=== PATIENT | female | born 1945 | race Caucasian/White ===

== ENCOUNTER 2016-11-23 12:29 | Inpatient (IN) | payer MEDICARE ==
[~2016-11-23] VITALS: Ht 160 cm; Wt 122.0 kg
--- NOTE | 2016-11-23 13:25 | NUR ---
DIRECT ADMIT VIA WHEELCHAIR ACCOMPANIED BY DAUGHTER. AMBULATED TO BED WITH PAINFUL GAIT. BILAT UPPER THIGHS RED, WARM, WITH YELLOW SEROUS DRAINAGE. C/O PAIN WITH MOVEMENT. ORIENTED TO ROOM AND CALL SYSTEM. SAFETY PRECAUTIONS REINFORCED. BED IN LOWEST POSITION WITH WHEELS LOCKED. CALL LIGHT WITHIN REACH. ENCOURAGED PT TO CALL FOR ANY NEEDS.
[2016-11-23 13:37] VITALS: BP 132/66
[2016-11-23 14:01] LABS: HEMATOCRIT 43.5 % (37.0-47.0); HEMOGLOBIN 13.6 g/dl (12.0-16.0); MEAN CELL VOLUME 93.1 fL CALC (80.0-100.0); MEAN CORPUSCULAR HGB 29.1 pG CALC (26.0-32.0); MEAN CORPUSCULAR HGB CONC 31.3 g/L CALC (32.0-36.0); NEUT# 9.7 thou/uL (2.00-7.15); RED BLOOD COUNT 4.67 mill/uL (4.20-5.60); RED CELL DISTRI WIDTH 14.2 % (11.5-15.5)
[2016-11-23 14:24] LABS: ALBUMIN 3.7 g/dL (3.2-5.0); ALKALINE PHOSPHATASE 96 u/l (38-126); ANION GAP 18 (6-22 (CALC)); BILIRUBIN, TOTAL 0.3 mg/dL (0.0-1.4); BUN 10 mg/dL (8-23); BUN/CREATININE RATIO 12 (12-20 (CALC)); CALCIUM 9.5 mg/dL (8.4-10.2); CARBON DIOXIDE 28 mmol/l (22-30); CHLORIDE 101 mmol/l (95-108); CREATININE 0.8 mg/dL (0.5-1.0); GFR > 60 ML/MIN (>=60 (CALC)); GFR FOR AFR.AMER. > 60 ML/MIN (>=60 (CALC)); GLUCOSE 93 mg/dL (82-115); POTASSIUM 3.8 mmol/l (3.5-5.1); SGOT/AST 19 u/l (9-36); SGPT/ALT 30 u/l (11-66); SODIUM 143 mmol/l (137-146)
[2016-11-23] MEDS ORDERED: LEVEMIR100 UNIT/M SC (14:55)
[2016-11-23] MEDS ORDERED: VICTOZA18 MG/3 ML SC (14:57)
[2016-11-23] MEDS ORDERED: ISOSORB MONO30 MG PO (14:59)
[2016-11-23] MEDS ORDERED: OMEPRAZOLE10 MG PO (15:03)
[2016-11-23] MEDS ORDERED: JANUVIA50 MG PO (15:08)
[2016-11-23] MEDS ORDERED: JARDIANCE25 MG PO (15:09)
[2016-11-23 15:26] VITALS: BP 125/54
--- NOTE | 2016-11-23 16:01 | NUR ---
S: SHAUNA HARRIS is a 70 F who presents with bilateral thigh cellulitis. O: VS: BP 125/54, P 84, RR 20, T 98.6 W 122 kg, HT 63 in, Scr=0.8, CrCl=55.4 ml/min A: Blood culture is pending. P: Patient is on Meropenem 1 gram IV Q8H. Vancomycin ordered for pharmacy to dose. Start Vancomycin 1 gram IV Q12H. Vancomycin trough is drawn before the 4th dose on 11/25/16@0330. Vancomycin goal trough is between 10-20 mcg/ml. Pharmacy will follow and or advise on antibiotics use as needed.
--- NOTE | 2016-11-23 16:10 | NUR ---
BILAT UPPER THIGHS CLEANSED WITH SOAP AND WATER, PATTED DRY. AREA RED, WARM TO TOUCH. WOUND CULTURE OBTAINED. MEDICATED WITH TORADOL 30MG IVP FOR C/O 7/10 BILAT UPPER THIGH PAIN. CALL LIGHT WITHIN REACH. ENCOURAGED PT TO CALL FOR ANY NEEDS.
[2016-11-23] MEDS ORDERED: VENLAFAXINE HCL75 M1 PO (16:20)
[2016-11-23] MEDS ORDERED: METO25TAB PO (16:39)
[2016-11-23] MEDS ORDERED: AMLODIPINE5 MG PO (16:39)
[2016-11-23] MEDS ORDERED: COZAAR50 MG PO (16:40)
[2016-11-23] MEDS ORDERED: HYDROCHLOROT12.5 M1 PO (16:41)
[2016-11-23] MEDS ORDERED: ASPIRINCHW 81MG PO (16:42)
[2016-11-23] MEDS ORDERED: ATORVASTATIN CA20 MG PO (16:42)
[2016-11-23 19:00] VITALS: BP 123/57
--- NOTE | 2016-11-23 19:39 | NUR ---
PATIENT SITTING UP OIN BED AT THIS TIME WITH NO COMPLAINTS. AWAKE ALERT AND ORIENTEDX3. CALL LIGHT IN REACH. WILL CONT TO MONITOR.
--- NOTE | 2016-11-23 21:00 | NUR ---
PATIENT RESTING IN BED AT THIS TIME-AWAKE ALERT AND DAUGHTER VISITING AT BEDSIDE. PATIENT WITH CELLULITIS TO BOITH INNER THIGHS-SWOLLEN, RED, HARD TO TOUCH AND PAINFUL. PATIENT UP TO BSC TO VOID CLEAR YELLOW URINE. CALL LIGHT IN REACH. WILL CONT TO MONITOR.
--- NOTE | 2016-11-23 23:23 | NUR ---
PATIENT RESTING IN BED WITH C-PAP IN PLACE. PATIENT C/O CECILIA INNER THIGH PAIN 7/10 ON PAIN SCALE. PATIENT MEDICATED WITH ULTRAM 50MG PO AND FOR SLEEP WITH SONATA 5MG PO. CALL LIGHT IN REACH. WILL CONT TO MONITOR.
[2016-11-24 04:00] VITALS: BP 114/57
--- NOTE | 2016-11-24 04:21 | NUR ---
PATIENT AWAKE RESTING IN BED. PATIENT HAS BEEN UP TO THE BSC TO VOID CLEAR YELLOW URINE. IV VANCO HUNG ORDERED VIA RIGHT AC IV SITE-SITE IS HEALTHY WITH GOOD BLOOD RETURN. PATIENT WITH NO COMPLAINTS AT THIS TIME. CALL LIGHT IN REACH. WILL CONT TO MONITOR.
[2016-11-24 06:02] LABS: HEMATOCRIT 36.2 % (37.0-47.0); HEMOGLOBIN 11.4 g/dl (12.0-16.0); MEAN CELL VOLUME 93.8 fL CALC (80.0-100.0); MEAN CORPUSCULAR HGB 29.5 pG CALC (26.0-32.0); MEAN CORPUSCULAR HGB CONC 31.5 g/L CALC (32.0-36.0); RED BLOOD COUNT 3.86 mill/uL (4.20-5.60); RED CELL DISTRI WIDTH 14.4 % (11.5-15.5)
--- NOTE | 2016-11-24 06:18 | NUR ---
IV ANTIBIOTICS INFUSING ORDERED. PATIENT WITH C-PAP IN PLACE. CALL LIGHT IN REACH. WILL CONT TO MONITOR.
[2016-11-24 06:22] LABS: ANION GAP 13 (6-22 (CALC)); BUN 9 mg/dL (8-23); BUN/CREATININE RATIO 11 (12-20 (CALC)); CALCIUM 8.7 mg/dL (8.4-10.2); CARBON DIOXIDE 25 mmol/l (22-30); CHLORIDE 106 mmol/l (95-108); CREATININE 0.8 mg/dL (0.5-1.0); GFR > 60 ML/MIN (>=60 (CALC)); GFR FOR AFR.AMER. > 60 ML/MIN (>=60 (CALC)); GLUCOSE 145 mg/dL (82-115); POTASSIUM 4.4 mmol/l (3.5-5.1); SODIUM 139 mmol/l (137-146)
--- NOTE | 2016-11-24 07:00 | NUR ---
REPORT RECIEVED FROM CHRISTY GALLEGO; PT RESTING IN BED; IV ANTIBIOTICS COMPLETED AND IV SITE FLUSHED AT THIS TIME; PT REQUESTING PAIN MEDICATION AT THIS TIME FOR PAIN IN UPPER THIGHS; CALL LIGHT WITHIN REACH; WILL CONTINUE TO MONITOR
[2016-11-24 07:54] VITALS: BP 123/62
--- NOTE | 2016-11-24 12:00 | NUR ---
PT RESTING IN BED WITH CPAP ON; NO S/S OF DISTRESS NOTED; PT DENIES ANY NEEDS AT THIS TIME; PT ENCOURAGED TO CALL FOR ANY ASSISTANCE NEEDED; CALL LIGHT WITHIN REACH; WILL CONTINUE TO MONITOR
--- NOTE | 2016-11-24 14:30 | NUR ---
PT C/O PAIN RATING 8 OUT OF 10 IN THIGHS; PT MEDICATED WITH TRAMADOL PER PRN ORDERS; PT DENIES ANY OTHER NEEDS AT THIS TIME;CALL LIGHT AMOS REACH; WILL CONTINUE TO MONITOR
[2016-11-24 16:00] VITALS: BP 135/63
--- NOTE | 2016-11-24 16:00 | NUR ---
PT RESTING IN BED; NO S/S OF DISTRESS NOTED; PT DENIES ANY NEEDS AT THIS TIME; CALL LIGHT WITHIN REACH; WILL CONTINUE TO MONITOR
--- NOTE | 2016-11-24 19:53 | NUR ---
REPORT RECEIVED FROM BIBI AND PT.MEDICATED FOR PAIN W/ULTRAM 7/10 ON PAIN SCALE; PT.PROVIDED HOT CUP OF WATER REQUESTED FOR TEA; IN TO SEE PT.SCHEDULED SURGERY ON LEG IN MORNING, PT.TO BE PLACED NPO AFTER MIDNIGHT/.;
[2016-11-24 20:40] VITALS: BP 138/75
[2016-11-25] VITALS (9 sets, daily range): BP systolic 110–159; BP diastolic 40–65
--- NOTE | 2016-11-25 00:15 | NUR ---
PT.V/S ASSESSED T.100.9; PT.UP TO BSC AND PADS ON BED CHANGED; SANGUINEOUS DRAINAGE FROM UPPER INNER THIGH WOUND; WILL CONTINUE TO MONITOR; PT.REQUESTING PAIN MEDICATION, MEDICATED ORDERS PROVIDE; CALL LIGHT W/IN REACH AND PT.INSTRUCTED TO CALL FOR ASSISTANCE; PT.LEFT IN BED W/LIGHTS OUT AND CPAP IN PLACE
[2016-11-25 04:39] LABS: HEMATOCRIT 38.4 % (37.0-47.0); HEMOGLOBIN 12.2 g/dl (12.0-16.0); IMMATURE GRANULOCYTES 1.9 % (0.0-1.0); MEAN CELL VOLUME 93.4 fL CALC (80.0-100.0); MEAN CORPUSCULAR HGB 29.7 pG CALC (26.0-32.0); MEAN CORPUSCULAR HGB CONC 31.8 g/L CALC (32.0-36.0); NEUT# 8.16 thou/uL (2.00-7.15); RED BLOOD COUNT 4.11 mill/uL (4.20-5.60); RED CELL DISTRI WIDTH 14.6 % (11.5-15.5)
[2016-11-25 04:45] LABS: ANION GAP 12 (6-22 (CALC)); BUN 12 mg/dL (8-23); BUN/CREATININE RATIO 17 (12-20 (CALC)); CALCIUM 8.9 mg/dL (8.4-10.2); CARBON DIOXIDE 27 mmol/l (22-30); CHLORIDE 102 mmol/l (95-108); CREATININE 0.8 mg/dL (0.5-1.0); GFR > 60 ML/MIN (>=60 (CALC)); GFR FOR AFR.AMER. > 60 ML/MIN (>=60 (CALC)); GLUCOSE 162 mg/dL (82-115); POTASSIUM 4.1 mmol/l (3.5-5.1); SODIUM 137 mmol/l (137-146)
--- NOTE | 2016-11-25 06:40 | NUR ---
PTPRISCA COMPLETED AND PREPPED TO HANG MERREM, IV SITE LEAKING; WILL REPLACE IV SITE; PT.PADS REPLACED W/MODERATE AMOUNT OF DRAINAGE FROM UPPER THIGH WOUND; SITE RED,SWOLLEN AND INFLAMED; PT.ASSISTED BACK TO BED AND CALL LIGHT W/IN REACH
--- NOTE | 2016-11-25 08:00 | NUR ---
CHRISTY HERNANDEZ FORM ER UNSUCCESSFUL ATTEMPT AT IV ACCESS; EXTENSION COURSE COUNSELOR NOTIFIED
--- NOTE | 2016-11-25 08:02 | NUR ---
Vancomycin dose Current dose being given: 1000 mg Current dosing interval: 12 hrs Current infusion time (hrs): 2 Estimated PK Parameters: New rate constant (jeny): 0.085 hr-1 New half-life: 8.15 Hours New Vd from levels: 85.40 Liters (0.7 L/kg) Give Vancomycin 1500 mg q 12 hrs. Infuse over 2 hrs Expected Cpeak: 25.3 mcg/ml Expected Ctrough: 10.8 mcg/ml Vancomycin trough on 11/28/16 at 0330, 30 minutes prior to dose.
--- NOTE | 2016-11-25 08:41 | NUR ---
ASSESSMENT COMPLETED; PT DOES NOT VOICE ANY COMPLAINTS OF PAIN AT THIS TIME; RT INNER THIGH ABCESS WITH MODERATE AMOUNT OF SEROUSAGINOUS DRAINAGE NOTED; INSTRUCTED PT ON NPO STATUS; PT VERBALIZE UNDERSTANDING; CALL PONCE WITHIN REACH; WILL CONTINUE TO MONITOR.
--- NOTE | 2016-11-25 10:15 | NUR ---
#22 GAUGE STARTED IN RFA BY Aide LONGO RN; FIRST ATTEMPT SUCCESSFUL; PT TOLERATED WELL; CALL PONCE WITHIN REACH; WILL CONTINUE TO MONITOR.
--- NOTE | 2016-11-25 10:55 | NUR ---
PT TO OR VIA STRETCHER ACCOMPANIED BY STAFF
--- NOTE | 2016-11-25 11:30 | NUR ---
PT RETURN FROM OR VIA STRETCHER ACCOMPANIED BY STAFF; AMBULATORY TO BED WITH STAND BY ASSIST; A/O X3; DENIES PAIN; CALL PONCE WITHIN REACH; WILL CONTINUE TO MONITOR
--- NOTE | 2016-11-25 13:35 | NUR ---
PT TO RADIOLOGY VIA WC ACCOMPANIED BY STAFF;
--- NOTE | 2016-11-25 14:10 | NUR ---
PT RETURN FROM RADIOLOGY VIA WC ACCOMPANIED BY STAFF; AMBULATORY TO BED; JAMES DOUBLE LUMEN PICC LINE IN PLACE, FLUSHES WELL; CALL PONCE WITHIN REACH; WILL CONTINUE TO MONITOR.
--- NOTE | 2016-11-25 17:03 | NUR ---
PT WATCHING TV; NO COMPLAINTS VOICED; IVF INFUSING WITHOUT DIFFICULTY
--- NOTE | 2016-11-25 19:50 | NUR ---
BEDSIDE REPORT RECEIVED FROM CHRISTY SILVERIO. PT SUPINE IN BED WITH DAUGHTER AT BEDSIDE. DENIES PAIN AT THIS TIME. C/O SHORTNESS OF BREATH WITH EXERTION. ASSESSMENT COMPLETE. IV FLUIDS INFUSING INTO PICC LINE APPROPRIATELY. CONTINUES ON CONTACT PRECAUTIONS FOR HISTORY OF MRSA. CHRISTY SCHULER FROM OR UP TO TRANSPORT PT TO OR FOR SURGICAL PROCEDURE. PLAN OF CARE DISCUSSED WITH PT AND ALL QUESTIONS ANSWERED TO SATISFACTION. PT OFF UNIT AT 1945.
[2016-11-26] VITALS (7 sets, daily range): BP systolic 104–129; BP diastolic 43–59
--- NOTE | 2016-11-26 | NUR ---
PT RESTING SUPINE IN BED WITH EYES CLOSED. STATES THAT ANALGESIC AND REPORSITIONING INTO A FLAT POSITION IS EFFECTIVE WITH PAIN TO SURGICAL SITES. RESPIRATIONS ARE EVEN AND UNLABORED WITH CPAP IN PLACE. PT HAS NO REQUESTS AT THIS TIME. SAFETY MEASURES IN PLACE. CALL LIGHT WITHIN REACH.
--- NOTE | 2016-11-26 04:24 | NUR ---
PT UP TO BSC AND PAIN MEDICATION GIVEN AT THIS TIME. BLEEDING NOTED THROUGH SIMEON WRAP. ADDITIONAL SIMEON WRAP APPLIED TAUNTLY INSTRUCTED BY DR. SANTO. RIGHT ARM CIRCUMFERENCE MEASURES 34.5CM THIS SHIFT WITH PICC LINE IN PLACE. SAFETY MEASURES IN PLACE. CALL LIGHT WITHIN REACH.
[2016-11-26 06:21] LABS: HEMATOCRIT 32.6 % (37.0-47.0); HEMOGLOBIN 10.3 g/dl (12.0-16.0); IMMATURE GRANULOCYTES 3.2 % (0.0-1.0); MEAN CELL VOLUME 94.2 fL CALC (80.0-100.0); MEAN CORPUSCULAR HGB 29.8 pG CALC (26.0-32.0); MEAN CORPUSCULAR HGB CONC 31.6 g/L CALC (32.0-36.0); NEUT# 6.01 thou/uL (2.00-7.15); RED BLOOD COUNT 3.46 mill/uL (4.20-5.60); RED CELL DISTRI WIDTH 14.4 % (11.5-15.5)
[2016-11-26 06:35] LABS: ANION GAP 10 (6-22 (CALC)); BUN 12 mg/dL (8-23); BUN/CREATININE RATIO 20 (12-20 (CALC)); CALCIUM 8.3 mg/dL (8.4-10.2); CARBON DIOXIDE 26 mmol/l (22-30); CHLORIDE 105 mmol/l (95-108); CREATININE 0.6 mg/dL (0.5-1.0); GFR > 60 ML/MIN (>=60 (CALC)); GFR FOR AFR.AMER. > 60 ML/MIN (>=60 (CALC)); GLUCOSE 132 mg/dL (82-115); POTASSIUM 4.3 mmol/l (3.5-5.1); SODIUM 138 mmol/l (137-146)
--- NOTE | 2016-11-26 08:00 | NUR ---
PT A/O X3; MEDICATED FOR C/O PAIN 01/15; MODERATE AMOUNT OF BLOODY DRAINAGE NOTED TO BILAT DRSGS; DRSG TO BILAT THIGHS REINFORCED; JAMES PICC LINE FLUSHED PER PROTOCOL; CALL PONCE WITHIN REACH; WILL CONTINUE TO MONITOR.
--- NOTE | 2016-11-26 11:27 | NUR ---
DR. AYON IN TO SEE PT; PLAN OF CARE DISCUSSED
--- NOTE | 2016-11-26 14:07 | NUR ---
PT IN SUPINE POSITION; NO COMPLAINTS VOICED; DRSG CDI; PT VOIDS WELL; CALL PONCE WITHIN REACH; WILL CONTINUE TO MONITOR
--- NOTE | 2016-11-26 16:56 | NUR ---
DRSG TO BILAT INNER THIGHS REINFORCE; PT MEDICATED FOR C/O INCISION PAIN 03/17; CALL PONCE WITHIN REACH; WILL CONTINUE TO MONITOR.
--- NOTE | 2016-11-26 18:50 | NUR ---
SHIFT REPORT RECEIVED FROM CHRISTY BALES. PATIENT IS IN STABLE CONDTION AND LAYING IN BED. PATIENT APPEARS TO BE IN NO APPARENT DISTRESS OR DISCOMFORT.
--- NOTE | 2016-11-26 19:00 | NUR ---
DR FLORENTINO IS IN WITH PATIENT AT THIS TIME. DR FLORENTINO REMOVED DRSG AND PACKING FROM WOUND. RECEIVED VERBAL ORDER TO CHANGE DRSG BID AND PACK WOUND WITH NS SOAKED KIRLEX, COVERED WITH 4X4 GAUZE AND SECURED WITH KIRLEX.
--- NOTE | 2016-11-26 20:00 | NUR ---
BILATERAL INNER THIGH INCISIONS PACKED WITH NORMAL SALINE SOAKED KIRLEX, COVERED WITH 4X4 GAUZE AND SECURE WITH KIRLEX. STERILE TECHNIQUE USED TO PERFORM DRSG CHANGE. PATIENT TOLERATED WELL.
--- NOTE | 2016-11-27 | NUR ---
PATIENT IS RESTING WITH EYES CLOSED NAD BIPAP IN PLACE. PATIENT APPEARS TO BE IN NO APPARENT DISTRESS OF DISCOMFORT. WILL CONTINUE TO MONITOR.
[2016-11-27 03:25] LABS: HEMATOCRIT 32.6 % (37.0-47.0); HEMOGLOBIN 10.3 g/dl (12.0-16.0); IMMATURE GRANULOCYTES 3.6 % (0.0-1.0); MEAN CELL VOLUME 93.4 fL CALC (80.0-100.0); MEAN CORPUSCULAR HGB 29.5 pG CALC (26.0-32.0); MEAN CORPUSCULAR HGB CONC 31.6 g/L CALC (32.0-36.0); NEUT# 4.52 thou/uL (2.00-7.15); RED BLOOD COUNT 3.49 mill/uL (4.20-5.60); RED CELL DISTRI WIDTH 14.3 % (11.5-15.5)
[2016-11-27 03:37] LABS: ANION GAP 10 (6-22 (CALC)); BUN 9 mg/dL (8-23); BUN/CREATININE RATIO 15 (12-20 (CALC)); CALCIUM 8.4 mg/dL (8.4-10.2); CARBON DIOXIDE 28 mmol/l (22-30); CHLORIDE 106 mmol/l (95-108); CREATININE 0.6 mg/dL (0.5-1.0); GFR > 60 ML/MIN (>=60 (CALC)); GFR FOR AFR.AMER. > 60 ML/MIN (>=60 (CALC)); GLUCOSE 190 mg/dL (82-115); POTASSIUM 4.2 mmol/l (3.5-5.1); SODIUM 140 mmol/l (137-146)
[2016-11-27 04:40] VITALS: BP 111/52
--- NOTE | 2016-11-27 07:35 | NUR ---
PT ASSISTED TO CHAIR AND ASSISTED WITH BREAKFAST SET UP; NO COMPLAINTS VOICED; DSRG CDI; CALL PONCE WITHIN REACH; WILL CONTINUE TO MONITOR.
[2016-11-27 09:33] VITALS: BP 130/78
--- NOTE | 2016-11-27 10:25 | NUR ---
Weight: 122 Kilograms Vancomycin single level analysis: Current dose being given: 1500 mg Current dosing interval: 12 hrs Current infusion time (hrs): 2 Single level Trough Data: Trough level obtained: 9 mcg/ml Desired peak: 30 mcg/ml Desired trough: 12 mcg/ml Relevant medical/social history: SSTI Cultures and sensitivities: MSRA Assessment: Renal function is stable SCR=0.6 Recommendations: Give Vancomycin 1250 mg q 8 hrs. Infuse over 2 hrs Recommended labs and intervals: NEXT TROUGH WILL BE BEFORE 1200 DOSE ON 11/28/2016 Thank you for the consult, will continue to follow. Signature: MAKENZIE ALONSO PHARMD
--- NOTE | 2016-11-27 10:30 | NUR ---
DRSG TO RIGHT INNER THIGH REMOVED; MODERATE AMOUNT OF BLOODY DRAINAGE NOTED; AREA CLEANED WITH NS; PACKED WITH GAUZE; SECURED WITH KERLIX AND COBAN; DRSG TO LEFT INNER THIGH REMOVED; MODERATE AMOUNT OF BLOODY DRAINAGE NOTED; AREA CLEANED WITH NS; PACKED WITH GAUZE AND SECURED WITH KERLIX AND COBAN; PT TOLERATED WELL; CALL PONCE WITHIN REACH; WILL CONTINUE TO MONITOR.
--- NOTE | 2016-11-27 11:30 | NUR ---
PT IN CHAIR FOR LUNCH; NO COMPLAINTS VOICED AT THIS TIME;
--- NOTE | 2016-11-27 12:46 | NUR ---
DR. AYON IN TO SEE PT; PLAN OF CARE DISCUSSED
--- NOTE | 2016-11-27 16:00 | NUR ---
RECEIVED PT FROM JEAN CLAUDE, PT SITTING UP IN RECLINER PLAYING GAMES, NO C/O DISCOMFORT, WOUND DRESSINGS INTACT TO LOWER EXT, ALL NEEDS MET/ADDRESSED, CALL PONCE IN REACH.
[2016-11-27 16:42] VITALS: BP 114/55
--- NOTE | 2016-11-27 19:00 | NUR ---
RECEIVED REPORT FROM CHRISTY NERI. PATIENT RESTING IN BED AT THIS TIME ANDAPPEARS TO BE IN NO APPARENT DISTRESS OR DISCOMFORT. PATIENT DENIES PAIN. NO VOICED COMPLAINTS. WILL CONTINUE TO MONITOR.
[2016-11-27 19:46] VITALS: BP 114/50
--- NOTE | 2016-11-28 | NUR ---
PATIENT RESTING QUIETLY WITH EYES CLOSED AND APPEARS TO BE IN NO APPARENT DISTRESS OR DISCOMFORT. WILL CONTINUE TO MONITOR.
--- NOTE | 2016-11-28 04:00 | NUR ---
PATIENT RESTING WELL. NO VOICED COMPLAINTS AT THIS TIME.
[2016-11-28 04:20] VITALS: BP 115/54
--- NOTE | 2016-11-28 07:00 | NUR ---
SHIFT CHANGE REPORT FROM SREEDHAR, ANILA AWAKE ALERT AND ORIENTED RESTING IN BED, DRESSINGS TO CECILIA THIGHS NOTED DISPLACED WITH BLOODY DRAINAGE, NO C/O PAIN AT THIS TIME, WILL CONTINUE TO MONITOR AND ADDRESS NEEDS.
[2016-11-28 08:23] VITALS: BP 120/58
--- NOTE | 2016-11-28 10:17 | NUR ---
DAUGHTER IN ROOM AT THIS TIME, EDUCATED ON DRESSING CHANGES BY NIGHT RN. I OBSERVED DAUGHTER PERFORMING DRESSING CHANGES AND ADVISED HER TO USE STERILE TECHNIQUE WHEN REPLACING NEW DRESSINGS; THIS WAS DONE WITH SOME COACHING AND APPLICABLE INSTRUCTIONS. SOILED DRESSINGS REMOVED, WOUNDS PACKED WITH W-D ANIKET, ABD APPLIED AND SECURED WITH COBAN.
--- NOTE | 2016-11-28 12:36 | NUR ---
VANCO TROUGH=13 CURRENT DOSE=VANCOMYCIN 1250MG IV Q8H WILL CONTINUE VANCOMYCIN 1250MG IV Q8H NEXT TROUGH WILL BE DUE 11/29/2016 BEFORE 2000 DOSE MAKENZIE ALONSO-REBECAD
[2016-11-28 14:50] VITALS: BP 106/51
--- NOTE | 2016-11-28 19:00 | NUR ---
RECEIVED SHIFT REPORT FROM CHRISTY NERI. PATIENT SITTING UP IN CHAIR AND APPEARS TO BE IN NO APPARENT DISTRESS OR DISOMFORT. WILL CONTINUE TO MONITOR.
--- NOTE | 2016-11-28 19:00 | NUR ---
RECEIVED SHIFT REPORT FROM CHRISTY NERI. PATIENT LAYING IN BED IN STABLE CONDITION AND APPEARS TO BE IN NO APPARENT DISTRESS OR DISCOMFORT. BEE CONTINUE TO MONITOR.
[2016-11-28 19:30] VITALS: BP 128/58
--- NOTE | 2016-11-28 21:00 | NUR ---
PATIENT REFUSED TO HAVE DRESSINGS CHANGED. PATIENT STATES THE PHYSICIAN TELLS HER THAT THE ORDER WILL BE CHANGED TO ONCE A DAY.
--- NOTE | 2016-11-29 | NUR ---
PATIENT RESTING WITH EYES CLOSED AND APPEARS TO BE IN NO APPARENT DISTRESS OR DISCOMFORT. WILL CONTINUE TO MONITOR.
--- NOTE | 2016-11-29 04:00 | NUR ---
PATIENT SLEPT WEL DURING THE NIGHT. NO ACUTE CHANGES NOTED.
[2016-11-29 04:25] VITALS: BP 111/59
--- NOTE | 2016-11-29 07:00 | NUR ---
REPORT RECIEVED FROM CHRISTY ELI; PT RESTING IN BED WITH EYES CLOSED CPAP IN PLACE; FALL PRECAUTIONS IN PLACE; CALL LIGHT WITHIN REACH; WILL CONTINUE TO MONITOR
[2016-11-29 07:38] VITALS: BP 122/50
[2016-11-29] MEDS ORDERED: DAPTOMYCIN500 MG IV (12:14)
[2016-11-29] MEDS ORDERED: LORTAB 7.5-3251 TAB PO (12:14)
--- NOTE | 2016-11-29 12:21 | NUR ---
PT SITTING UP IN BED; NO S/S OF DISTRESS NOTED; DRESSINGS TO BILATERAL THIGHS CDI; IV VANCO INFUSING TO PICC TO JAMES; PT ENCOURAGED TO CALL FOR ANY ASSISTANCE NEEDED;CALL LIGHT WITHIN REACH; WILL CONTINUE TO MONITOR
--- NOTE | 2016-11-29 14:50 | NUR ---
Discharge instructions given. Patient verbalizes understanding of same. Discharged in stable condition via Wheelchair to Home with family. All belongings sent with pt.
== END 2016-11-29 15:05 | disposition home health service (06) | DRG 264 ==
LOC: ENPENDDIS → MS2 12:29
PROVIDERS: Internal Medicine; ADMIT Internal Medicine; ATTEND Internal Medicine
PROC: 0JBL0ZZ Excision of Right Upper Leg Subcutaneous Tissue and Fascia, Open Approach (ICD-10-PCS; principal; 2016-11-25)
PROC: 0J9P0ZZ Drainage of Left Lower Leg Subcutaneous Tissue and Fascia, Open Approach (ICD-10-PCS; 2016-11-25)
PROC: 02HV33Z Insertion of Infusion Device into Superior Vena Cava, Percutaneous Approach (ICD-10-PCS; 2016-11-25)
PROC: B518ZZA Fluoroscopy of Superior Vena Cava, Guidance (ICD-10-PCS; 2016-11-25)
DX: E11.52 Type 2 diabetes mellitus with diabetic peripheral angiopathy with gangrene (principal); E11.628 Type 2 diabetes mellitus with other skin complications; I27.2 Other secondary pulmonary hypertension; E11.65 Type 2 diabetes mellitus with hyperglycemia; L02.416 Cutaneous abscess of left lower limb; L03.115 Cellulitis of right lower limb; L03.116 Cellulitis of left lower limb; Z68.42 Body mass index [BMI] 45.0-49.9, adult; I10 Essential (primary) hypertension; I25.10 Atherosclerotic heart disease of native coronary artery without angina pectoris; E89.0 Postprocedural hypothyroidism; E78.5 Hyperlipidemia, unspecified; G47.33 Obstructive sleep apnea (adult) (pediatric); J44.9 Chronic obstructive pulmonary disease, unspecified; J45.909 Unspecified asthma, uncomplicated; E66.01 Morbid (severe) obesity due to excess calories; B95.62 Methicillin resistant Staphylococcus aureus infection as the cause of diseases classified elsewhere; Z79.4 Long term (current) use of insulin; Z85.118 Personal history of other malignant neoplasm of bronchus and lung; Z90.2 Acquired absence of lung [part of]; Z99.81 Dependence on supplemental oxygen
CPT/HCPCS: J0878; J1650; J3370

== ENCOUNTER 2017-01-09 11:49 | Emergency (ER) | payer MEDICARE ==
[~2017-01-09] VITALS: Ht 160 cm; Wt 105.0 kg
[~2017-01-09 11:49] MED LIST: AMLODIPINE5 MG PO; ASPIRINCHW 81MG PO; ATORVASTATIN CA20 MG PO; COZAAR50 MG PO; DAPTOMYCIN500 MG IV; HYDROCHLOROT12.5 M1 PO; ISOSORB MONO30 MG PO; JANUVIA50 MG PO; JARDIANCE25 MG PO; LEVEMIR100 UNIT/M SC; LORTAB 7.5-3251 TAB PO; METO25TAB PO; OMEPRAZOLE10 MG PO; VENLAFAXINE HCL75 M1 PO; VICTOZA18 MG/3 ML SC
[2017-01-09 13:49] LABS: HEMATOCRIT 45.8 % (37.0-47.0); HEMOGLOBIN 14.4 g/dl (12.0-16.0); IMMATURE GRANULOCYTES 0.3 % (0.0-1.0); MEAN CELL VOLUME 89.6 fL CALC (80.0-100.0); MEAN CORPUSCULAR HGB 28.2 pG CALC (26.0-32.0); MEAN CORPUSCULAR HGB CONC 31.4 g/L CALC (32.0-36.0); NEUT# 5.98 thou/uL (2.00-7.15); RED BLOOD COUNT 5.11 mill/uL (4.20-5.60)
[2017-01-09] MEDS ORDERED: DOXYCYCLINE100 MG PO (14:23)
[2017-01-09 14:46] VITALS: BP 142/55
== END 2017-01-09 14:46 | disposition home or self-care (01) ==
LOC: ED 11:49
PROVIDERS: Emergency Medicine
DX: L03.315 Cellulitis of perineum (principal); L02.416 Cutaneous abscess of left lower limb; L02.415 Cutaneous abscess of right lower limb; B95.62 Methicillin resistant Staphylococcus aureus infection as the cause of diseases classified elsewhere

== ENCOUNTER 2018-07-24 14:53 | Observation (INO) | payer MEDICARE ==
[~2018-07-24] VITALS: Ht 160 cm; Wt 88.8 kg
[~2018-07-24 14:53] MED LIST changes: +DOXYCYCLINE100 MG PO
[2018-07-24 16:33] LABS: HEMATOCRIT 48.5 % (37.0-47.0); HEMOGLOBIN 16.1 g/dl (12.0-16.0); IMMATURE GRANULOCYTES 0.5 % (0.0-5.0); MEAN CELL VOLUME 89.8 fL CALC (80.0-100.0); MEAN CORPUSCULAR HGB 29.8 pG CALC (26.0-32.0); MEAN CORPUSCULAR HGB CONC 33.2 g/L CALC (32.0-36.0); NEUT# 7.96 thou/uL (2.00-7.15); RED BLOOD COUNT 5.4 mill/uL (4.20-5.60); RED CELL DISTRI WIDTH 13.6 % (11.5-15.5)
[2018-07-24 17:03] LABS: ALBUMIN 4.9 g/dL (3.2-5.0); ALKALINE PHOSPHATASE 100 u/l (38-126); ANION GAP 20 (6-22 (CALC)); BUN 11 mg/dL (8-23); BUN/CREATININE RATIO 18 (12-20 (CALC)); CARBON DIOXIDE 24 mmol/l (22-30); CHLORIDE 105 mmol/l (95-108); CREATININE 0.6 mg/dL (0.5-1.0); GFR > 60 ML/MIN (>=60 (CALC)); GFR FOR AFR.AMER. > 60 ML/MIN (>=60 (CALC)); LIPASE 86 u/l (23-300); POTASSIUM 3.5 mmol/l (3.5-5.1); SODIUM 144 mmol/l (137-146)
[2018-07-24 17:04] LABS: SGOT/AST 47 u/l (9-36); TOTAL PROTEIN 9.1 g/dL (6.3-8.2)
[2018-07-24] MEDS ORDERED: COMBIVENT RESPIMAT IN (19:08)
[2018-07-24] MEDS ORDERED: SLOW-MAG PO (19:12)
[2018-07-24 19:20] VITALS: BP 91/57
[2018-07-24 23:06] LABS: URINE BILIRUBIN - DIPSTICK NEGATIVE (NEGATIVE); URINE BLOOD DIPSTICK MODERATE (NEGATIVE); URINE COLOR YELLOW; URINE GLUCOSE - DIPSTICK >=1000 mg/dL (NEGATIVE); URINE KETONE 15 mg/dL (NEGATIVE); URINE LEUK ESTERASE TRACE (NEGATIVE); URINE NITRITE - DIPSTICK NEGATIVE (Negative); URINE PROTEIN - DIPSTICK NEGATIVE (NEG-TRACE); URINE SPECIFIC GRAVITY 1.025; URINE UROBILINOGEN - DIPSTICK 0.2 E.U./dL (0.2)
[2018-07-24 23:16] LABS: URINE BACTERIA FEW hpf; URINE SQUAMOUS EPITHELIAL CELL FEW EPI/hpf (0-FEW)
[2018-07-25 04:29] VITALS: BP 98/53
[2018-07-25 08:45] VITALS: BP 97/49
[2018-07-25 10:28] LABS: HEMATOCRIT 44.3 % (37.0-47.0); HEMOGLOBIN 14.3 g/dl (12.0-16.0); IMMATURE GRANULOCYTES 0.4 % (0.0-5.0); MEAN CORPUSCULAR HGB 29.4 pG CALC (26.0-32.0); MEAN CORPUSCULAR HGB CONC 32.3 g/L CALC (32.0-36.0); NEUT# 6.09 thou/uL (2.00-7.15); RED BLOOD COUNT 4.87 mill/uL (4.20-5.60); RED CELL DISTRI WIDTH 13.5 % (11.5-15.5)
[2018-07-25 10:37] LABS: ALKALINE PHOSPHATASE 72 u/l (38-126); ANION GAP 13 (6-22 (CALC)); BILIRUBIN, TOTAL 0.8 mg/dL (0.0-1.4); BUN 14 mg/dL (8-23); BUN/CREATININE RATIO 23 (12-20 (CALC)); CARBON DIOXIDE 26 mmol/l (22-30); CHLORIDE 105 mmol/l (95-108); CREATININE 0.6 mg/dL (0.5-1.0); GFR > 60 ML/MIN (>=60 (CALC)); GFR FOR AFR.AMER. > 60 ML/MIN (>=60 (CALC)); POTASSIUM 3.9 mmol/l (3.5-5.1); SGOT/AST 21 u/l (9-36); SODIUM 140 mmol/l (137-146)
[2018-07-25 10:38] LABS: ALBUMIN 3.7 g/dL (3.2-5.0); TOTAL PROTEIN 6.6 g/dL (6.3-8.2)
[2018-07-25 11:15] VITALS: BP 125/64
[2018-07-25 15:18] VITALS: BP 116/51
[2018-07-25 19:10] VITALS: BP 123/62
[2018-07-26 04:15] VITALS: BP 115/55
[2018-07-26 05:15] LABS: IMMATURE GRANULOCYTES 0.4 % (0.0-5.0); MEAN CELL VOLUME 90.9 fL CALC (80.0-100.0); MEAN CORPUSCULAR HGB 28.9 pG CALC (26.0-32.0); MEAN CORPUSCULAR HGB CONC 31.8 g/L CALC (32.0-36.0); NEUT# 4.31 thou/uL (2.00-7.15); RED BLOOD COUNT 4.84 mill/uL (4.20-5.60); RED CELL DISTRI WIDTH 13.5 % (11.5-15.5)
[2018-07-26 05:33] LABS: PROTHROMBIN TIME 10.6 SECONDS (9.0-12.5)
[2018-07-26 05:43] LABS: ALBUMIN 3.2 g/dL (3.2-5.0); ALKALINE PHOSPHATASE 62 u/l (38-126); ANION GAP 12 (6-22 (CALC)); BILIRUBIN, TOTAL 0.6 mg/dL (0.0-1.4); BUN 11 mg/dL (8-23); BUN/CREATININE RATIO 24 (12-20 (CALC)); CARBON DIOXIDE 24 mmol/l (22-30); CHLORIDE 109 mmol/l (95-108); CREATININE 0.5 mg/dL (0.5-1.0); GFR > 60 ML/MIN (>=60 (CALC)); GFR FOR AFR.AMER. > 60 ML/MIN (>=60 (CALC)); POTASSIUM 3.8 mmol/l (3.5-5.1); SGOT/AST 24 u/l (9-36); SODIUM 141 mmol/l (137-146); TOTAL PROTEIN 5.9 g/dL (6.3-8.2)
[2018-07-26 09:07] VITALS: BP 101/69
[2018-07-26] MEDS ORDERED: BACTRIM DS1 TAB PO (13:32)
== END 2018-07-26 14:55 | disposition home or self-care (01) ==
LOC: ED 14:53 → ED-I 18:03 → ED 18:17 → MS2 18:18
PROVIDERS: Family Medicine; Internal Medicine Nephrology; ADMIT Internal Medicine; ATTEND Internal Medicine
PROC: 0U9L0ZZ Drainage of Vestibular Gland, Open Approach (ICD-10-PCS; principal; 2018-07-24)
DX: R10.84 Generalized abdominal pain (principal); R11.2 Nausea with vomiting, unspecified; N75.0 Cyst of Bartholin's gland; I10 Essential (primary) hypertension; E11.9 Type 2 diabetes mellitus without complications; I25.10 Atherosclerotic heart disease of native coronary artery without angina pectoris; I27.20 Pulmonary hypertension, unspecified; F32.9 Major depressive disorder, single episode, unspecified; B95.62 Methicillin resistant Staphylococcus aureus infection as the cause of diseases classified elsewhere; Z85.118 Personal history of other malignant neoplasm of bronchus and lung; Z90.2 Acquired absence of lung [part of]
CPT/HCPCS: Q9967; S0164